=== PATIENT | female | born 1985 | race Caucasian/White ===

== ENCOUNTER 2023-12-28 07:41 | Outpatient (CLI) | payer OTHER ==
--- NOTE | 2023-12-29 10:52 | Ultrasound Report ---
LIMITED ULTRASOUND OF RIGHT BREAST AND AXILLA: 12/28/2023 CLINICAL: Patient returns today to evaluate a focal asymmetry in the right breast. Comparison is made to exams dated: 12/06/2023 mammogram - [facility] and 12/28/2023 mammogram - [facility]. Color flow and real-time ultrasound of the right breast 6-8 o'clock, and axilla regions were performe d. Short scale images of the real-time examination were reviewed. There is a possible 0.9 cm oval mass with an indistinct margin in the right breast at 6 o'clock middl e depth 10 cm from the nipple. This likely correlates with mammography findings. There are related calcifications. Overall, this mass is difficult to visualize. No significant abnormalities were seen sonographically in the right axilla. IMPRESSION: SUSPICIOUS OF MALIGNANCY The possible 0.9 cm oval mass in the right breast is suspicious of malignancy; however, this finding is better visualized on mammograms. A stereotactic biopsy is recommended. No sonographic abnormalities identified in the axilla. No axillary adenopathy. Findings and recommendations were discussed with the patient during today's examination. This exam was interpreted at Station ID: [id number]. Electronically Signed By: Tony Velásquez M.D. aty/:12/28/2023 12:15:49 Ultrasound BI-RADS: 4 Suspicious for malignancy BI-RADS CATEGORY: (4) - 4 Biopsy [id number] Immediate follow-up LATERALITY: (R)
--- NOTE | 2023-12-29 10:52 | Mammography Report ---
UNILATERAL RIGHT DIGITAL DIAGNOSTIC MAMMOGRAM 3D/2D WITH SPOT COMPRESSION: 12/28/2023 CLINICAL: Patient returns today to evaluate an asymmetry in the right breast. Comparison is made to exam dated: 12/06/2023 mammogram - [facility]. There are scattered areas of fibroglandular density in the right breast (category b / 25%-50% glandul ar tissue). There is a 0.8 cm oval equal density focal asymmetry with punctate calcifications in the right breast at 6 o'clock middle depth. This is seen in additional views. No other significant masses or calcifications are seen in the breast. IMPRESSION: INCOMPLETE: NEEDS ADDITIONAL IMAGING EVALUATION The 0.8 cm oval equal density focal asymmetry in the right breast is indeterminate. An ultrasound is recommended for further evaluation and is scheduled to immediately follow this examination. Based on the Tyrer Cuzick model (a risk assessment model) the patient's lifetime risk is 19.1% and he r 10 year risk is 2.5%. According to the ACR, ACS, and NCCN guidelines, an annual breast MRI exam juan ng with mammogram is recommended if the patient's lifetime risk is 20% or greater. This exam was interpreted at Station ID: [id number]. NOTE: For mammograms, a report in lay terms will be sent to the patient. Approximately 15% of breast malignancies will not be visualized mammographically. In the management of a palpable breast mass, a negative mammogram must not discourage biopsy of a clinically suspicious lesion. Electronically Signed By: Tony Velásquez M.D. aty/:12/28/2023 08:15:42 ACR BI-RADS Category 0: Incomplete 3340F PARENCHYMAL PATTERN: (A) - The breast(s) demonstrate(s) scattered fibroglandular densities. BI-RADS CATEGORY: (0) - 0 Ultrasound [id number] Immediate follow-up LATERALITY: (R)
== END 2023-12-28 07:42 | disposition home or self-care (01) ==
LOC: DI 07:41
PROVIDERS: ATTEND Nurse Practitioner Family
DX: R92.8 Other abnormal and inconclusive findings on diagnostic imaging of breast (principal); R92.1 Mammographic calcification found on diagnostic imaging of breast

== ENCOUNTER 2024-01-15 09:41 | Outpatient (CLI) | payer OTHER ==
[2024-01-15] MEDS ORDERED: LIDOCAINE-MPF 1% 5 ML VIAL ONE (09:43)
[2024-01-15] MEDS ORDERED: LIDOCAINE 1%-EPI 1:100000 20 ML MDV ONE (09:43)
[2024-01-15] MEDS: LIDOCAINE 1%-EPI 1:100000 20 ML MDV SUBQ ONE (15:53)
[2024-01-15] MEDS: LIDOCAINE-MPF 1% 5 ML VIAL TD ONE (15:54)
--- NOTE | 2024-01-17 11:01 | Mammography Report ---
STEREOTACTIC GUIDED BIOPSY RIGHT BREAST USING VACUUM DEVICE WITH MARKING DEVICE INSERTED- - RIGHT ERNESTO AST POST-PROCEDURE IMAGING FOR MARKER PLACEMENT: 01/15/2024 CLINICAL: Right breast stereotactic biopsy and clip placement imaging. Correlation is made to exams dated: 12/28/2023 mammogram - [facility] and 12/06/2023 mammogram - [facility]. A stereotactic guided biopsy was performed for the concerning 0.8 cm asymmetry with calcifications lo cated in the right breast at 7 o'clock middle depth. This was described on the previous mammography report. The skin was prepped in the usual manner. Local anesthetic was administered to the access s ite. A skin john was made in the breast. The abnormality was approached from the lateral aspect. A 12 gauge biopsy needle was placed adjacent to the abnormality under computer guidance and confirmato ry stereotactic mammography images were obtained to document needle placement. Once the needle was d ocumented to be in the correct location, seven specimens were obtained using a vacuum assisted device . A clip was inserted into the biopsy cavity. Post procedure imaging demonstrates the location allen ce at the targeted area. The specimens were sent to the laboratory for pathological analysis. Speci men radiograph includes the targeted calcifications. IMPRESSION: STEREOTACTIC GUIDED BIOPSY MALIGNANT Stereotactic guided biopsy of the 0.8 cm asymmetry in the right breast at 7 o'clock middle depth was successful. 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 Pathology is concordant with imaging. R ecommend surgical and oncological consultation. Consider breast MRI for further evaluation of extent of disease. This exam was interpreted at Station ID: [id number]. Matti Villarreal M.D. Lakeshia Kimbrough M.D., Ph.D. zohreh rojo/:01/17/2024 08:57:58 BI-RADS CATEGORY: () - Unspecified - other recall n/a LATERALITY: (B)
== END 2024-01-15 09:42 | disposition home or self-care (01) ==
LOC: DI 09:41
PROVIDERS: ATTEND Nurse Practitioner Family
DX: C50.511 Malignant neoplasm of lower-outer quadrant of right female breast (principal); Z17.0 Estrogen receptor positive status [ER+]
CPT/HCPCS: 19081